=== PATIENT | female | born 1985 | race Caucasian/White ===

== ENCOUNTER 2022-02-07 11:21 | Emergency (ER) | payer OTHER ==
[2022-02-07] MEDS ORDERED: SODIUM CHLORIDE 0.9% 1,000 ML IV STA ×2 (11:43)
--- NOTE | 2022-02-07 12:12 | XR ---
EXAMINATION TYPE: XR chest 2V DATE OF EXAM: 02/07/2022 COMPARISON: NONE TECHNIQUE: PA and lateral views submitted. HISTORY: Chest pain FINDINGS: The lungs are clear and there is no pneumothorax, pleural effusion, or focal pneumonia. Hyperinflat ion. Heart size normal. No overt failure. Biapical pleural thickening. IMPRESSION: 1. Hyperinflation correlate for asthma or COPD.
--- NOTE | 2022-02-07 12:22 | ED ---
Chest Pain HPI - General Chief Complaint: Chest Pain Stated Complaint: Chest Pain Time Seen by Provider: 02/07/22 11:27 Source: patient, RN notes reviewed, old records reviewed Mode of arrival: EMS Limitations: no limitations - History of Present Illness Initial Comments: 36-year-old female presents Emergency Department with complaints of chest discomfort and with taking a deep breath. Patient has a history of cocaine, heroin, methamphetamine, methadone use. Patient reports that she is from [place], [place]. She was transferred to our facility after complaining of chest pain after being checked into [facility] today. Patient reports that she has had a history of endocarditis in the past and was treated. She denies cough, fever, rash. - Related Data Previous Rx's Medication Instructions Recorded Albuterol Inhaler [Ventolin Hfa 1 puff INHALATION RT-TID #8 gm 02/07/22 Inhaler] Azithromycin [Zithromax Z-pack (6 0 mg PO DIRECTED 5 Days #6 tab 02/07/22 tabs)] predniSONE [Deltasone] 20 mg PO DIRECTED #12 tab 02/07/22 Allergies Allergy/AdvReac Type Severity Reaction Status Date / Time No Known Allergies Allergy Verified 02/07/22 14:16 Review of Systems ROS Statement: Those systems with pertinent positive or pertinent negative responses have been documented in the HPI. ROS Other: All systems not noted in ROS Statement are negative. EKG Findings - EKG Comments: EKG Findings:: EKG performed at 1136 is ventricular rate 95 beats were minute. Intervals 129 ms. QS duration is 85 ms. QT QTc is 324/376. Past Medical History Additional Past Medical History / Comment(s): endocarditis, raynauds, lupus, hep c, colitis, scolosis, History of Any Multi-Drug Resistant Organisms: None Reported Past Surgical History: No Surgical Hx Reported Past Psychological History: ADD/ADHD, Anxiety, PTSD Smoking Status: Current every day smoker Past Alcohol Use History: Occasional Past Drug Use History: Cocaine, Heroin, Methamphetamine, Opiates General Exam - General Exam Comments Initial Comments: 36-year-old female. Alert and oriented 3. Patient is thin. Somewhat anxious. Limitations: no limitations General appearance: alert, in no apparent distress Head exam: Present: atraumatic, normocephalic, normal inspection Eye exam: Present: normal appearance, PERRL, EOMI. Absent: scleral icterus, conjunctival injection, periorbital swelling ENT exam: Present: normal exam, mucous membranes moist Neck exam: Present: normal inspection. Absent: tenderness, meningismus, lymphadenopathy Respiratory exam: Absent: normal lung sounds bilaterally (mild wheezing ), respiratory distress, wheezes, rales, rhonchi, stridor Cardiovascular Exam: Present: regular rate, normal rhythm, normal heart sounds. Absent: systolic murmur, diastolic murmur, rubs, gallop, clicks GI/Abdominal exam: Present: soft, normal bowel sounds. Absent: distended, tenderness, guarding, rebound, rigid Extremities exam: Present: normal inspection, full ROM, normal capillary refill. Absent: tenderness, pedal edema, joint swelling, calf tenderness Back exam: Present: normal inspection Neurological exam: Present: alert Psychiatric exam: Present: normal affect, normal mood Skin exam: Present: warm, dry, intact, normal color. Absent: rash Course Vital Signs 02/07/22 02/07/22 02/07/22 11:23 13:28 16:00 Temperature 98.7 F Pulse Rate 53 L 93 69 Respiratory 18 24 20 Rate Blood Pressure 103/80 114/72 109/71 O2 Sat by Pulse 91 L 94 L 96 Oximetry 02/07/22 17:06 Temperature 97.5 F L Pulse Rate 63 Respiratory 18 Rate Blood Pressure 112/96 O2 Sat by Pulse 95 Oximetry Chest Pain [facility] Patient is a 36 year old female, history of IVDU. She was checking into [facility] rehab facility and started complaining of chest pain. Patient reports history of endocarditis. His cousins likely related to anxiety for onset of chest pain however she does have some mild wheezing and concern for bronchitis. Patient had lab work and EKG showing no acute abnormality. CT chest angiogram to rule out PE showed no acute process there was some mild enlarged lymph nodes be followed up with. Patient will be treated this time for bronchitis with steroids and azithromycin. Patient is given IV Rocephin prior to discharge. CT chest angio no evidence of acute PE. Mild lymphadenopathy is noted. Chest x-ray shows Hyperinflation for asthma or COPD. Disposition Clinical Impression: IVDU (intravenous drug user), Bronchitis, Asthma, Withdrawal from recreational drug Disposition: HOME SELF-CARE Condition: Good Instructions (If sedation given, give patient instructions): Acute Bronchitis (ED), Wheezing (ED) Additional Instructions: Take medication as prescribed. Patient is to return to [facility] to help with withdrawal. Return to ER if worsening signs or symptoms occur. Prescriptions: predniSONE [Deltasone] 20 mg PO DIRECTED #12 tab Albuterol Inhaler [Ventolin Hfa Inhaler] 1 puff INHALATION RT-TID #8 gm Azithromycin [Zithromax Z-pack (6 tabs)] 0 mg PO DIRECTED 5 Days #6 tab Is patient prescribed a controlled substance at d/c from ED?: No Referrals: Andrew March DO [Primary Care Provider] - 1-2 days Time of Disposition: 15:56
[2022-02-07 12:47] LABS: Basophils # (A) 0.2 k/uL (0-0.2); Basophils % (A) 1 %; Eosinophils # (A) 0.4 k/uL (0-0.7); Eosinophils % (A) 3 %; HCT 41.1 % (34.0-46.0); Lymphocytes # (A) 4.4 k/uL (1.0-4.8); Lymphocytes % (A) 32 %; MCH 28.2 pg (25.0-35.0); MCHC 31.5 g/dL (31.0-37.0); MCV 89.4 fL (80.0-100.0); Mean Platelet Volume 7.6; Monocytes # (A) 1.3 k/uL (0-1.0); Monocytes % (A) 10 %; Neutrophils % (A) 51 %; Platelet Count 400 k/uL (150-450); RDW 15.2 % (11.5-15.5); WBC 13.8 k/uL (3.8-10.6)
[2022-02-07 12:52] LABS: INR 0.9 (<1.2); Prothrombin Time 9.9 sec (9.0-12.0)
[2022-02-07 12:56] LABS: ALT 58 U/L (4-34); AST 49 U/L (14-36); African American GFR (CKD) >90 (>60 ml/min/1.73 sqM); Albumin 3.7 g/dL (3.5-5.0); Alkaline Phosphatase 81 U/L (38-126); Anion Gap 7 mmol/L; Blood Urea Nitrogen 14 mg/dL (7-17); Calcium 9.1 mg/dL (8.4-10.2); Carbon Dioxide 24 mmol/L (22-30); Chloride 105 mmol/L (98-107); Glucose 87 mg/dL (74-99); Magnesium 1.8 mg/dL (1.6-2.3); Non-African American GFR(CKD) >90 (>60 ml/min/1.73 sqM); Potassium 4.4 mmol/L (3.5-5.1); Sodium 136 mmol/L (137-145); Total Bilirubin 0.5 mg/dL (0.2-1.3); Total Protein 7.4 g/dL (6.3-8.2)
--- NOTE | 2022-02-07 13:40 | CT ---
EXAMINATION TYPE: CT chest angio for PE DATE OF EXAM: 02/07/2022 COMPARISON: NONE HISTORY: SOB, chest pain CT DLP: 175.9 mGy.cm. Automated Exposure Control for Dose Reduction was Utilized. TECHNIQUE AND CONTRAST: CTA scan of the thorax is performed with IV Contrast, patient injected with 68cc mL of Isovue 370, pu lmonary angiogram protocol. MIP Images are created on an independent workstation and reviewed. FINDINGS: No definite filling defect within the pulmonary trunk, main pulmonary arteries, lobar, segmental and proximal subsegmental branches to suggest pulmonary embolism. Distal subsegmental branches are subopt imally assessed. The pulmonary trunk measures 2.1 cm. No gross cardiomegaly. Unremarkable thoracic ao rta and major mediastinal arteries. Mucous plugging is seen in the right lower lobe bronchi. Minimal bilateral apical pleural-based fibro tic changes. Bilateral hilar, infrahilar and inferior peribronchovascular densities measuring up to 7 mm in the right hilum, 6 mm in the right infrahilar location and 8mm in the left hilum likely repres enting prominent lymph nodes. Subcarinal lymph nodes are also noted measuring up to 7 mm. Unremarkabl e lungs otherwise. No pleural or pericardial effusion. Multiple variable sized axillary lymph nodes measuring up to 10 m m in the right axilla, please correlate clinically. Suspected cholecystectomy clips with dilated cent ral intrahepatic biliary tree, possibly related to postcholecystectomy status, please correlate with bilirubin level. Very small spleen. No aggressive bone lesion. IMPRESSION: No major or central pulmonary embolism. Prominent hilar, mediastinal and axillary lymph nodes as desc ribed above, please correlate clinically. Follow-up CT scan can be considered if clinically required. Other incidental findings and recommendation as described above.
[2022-02-07] MEDS ORDERED: methylPREDNISolone SOD SUCCI 125 MG/2 ML VIAL IV STA (15:09)
[2022-02-07] MEDS ORDERED: ALBUTEROL HFA INHALER INHALATION STA (15:09)
[2022-02-07 17:09] VITALS: BP 112/96; PULSE 63; RESP 18; TEMP 97.5
== END 2022-02-07 17:06 | disposition home or self-care (01) ==
LOC: EC 11:21
DX: J45.909 Unspecified asthma, uncomplicated (principal); F15.90 Other stimulant use, unspecified, uncomplicated; F14.90 Cocaine use, unspecified, uncomplicated; F11.90 Opioid use, unspecified, uncomplicated; F17.200 Nicotine dependence, unspecified, uncomplicated
CPT/HCPCS: 36415; 93005; 85379; 83880; 80053; 83605; 83735; 84484; 85025; 85610; 85730; 87040; 71046; 71275; 99285; 96365; 96375; J2930; J0696; Q9967